=== PATIENT | female | born 1990 | race Caucasian/White ===

== ENCOUNTER 2021-10-15 14:50 | Emergency (ER) | payer BC ==
[~2021-10-15] VITALS: Ht 170.2 cm; Wt 124.7 kg
== END 2021-10-15 21:06 | disposition home or self-care (01) ==
LOC: ER 14:50
DX: T21.35XA Burn of third degree of buttock, initial encounter (principal); S30.810A Abrasion of lower back and pelvis, initial encounter; B96.89 Other specified bacterial agents as the cause of diseases classified elsewhere; X17.XXXA Contact with hot engines, machinery and tools, initial encounter; Y93.89 Activity, other specified; Y92.019 Unspecified place in single-family (private) house as the place of occurrence of the external cause; Y99.9 Unspecified external cause status